=== PATIENT | female | born 1985 | race Caucasian/White ===

== ENCOUNTER 2016-12-04 05:39 | Inpatient (IN) | payer OTHER ==
[2016-12-04] VITALS (14 sets, daily range): BP systolic 106–137; RESP 10–22; TEMP 97.5–98.6; Ht 162.6 cm; Wt 88.5 kg
[~2016-12-04] VITALS: Ht 162.6 cm; Wt 88.5 kg
[2016-12-04] MEDS ORDERED: METOCLOPRAMIDE 10 MG/2 ML VIAL IV PUSH ONE (06:05)
[2016-12-04] MEDS ORDERED: FAMOTIDINE 20 MG INJ IV ONE (06:05)
[2016-12-04] MEDS ORDERED: CEFAZOLIN (LD/OB) 100 ML IV PRN (06:05)
[2016-12-04] MEDS: LACT RINGERS 1,000 ML IV SCH ×2 (06:21→07:11)
[2016-12-04] MEDS ORDERED: DILAUDID 1 MG/ML AMP IV PRN (07:40)
[2016-12-04] MEDS ORDERED: DIPHENHYDRAMINE 50 MG/ML VIAL IV PRN (07:40)
[2016-12-04] MEDS ORDERED: MORPHINE 4 MG/ML SYR IV PRN ×2 (07:40)
[2016-12-04] MEDS ORDERED: SALINE FLUSH 10 ML FLUSH PRN (07:40)
[2016-12-04] MEDS ORDERED: MEPERIDINE 25 MG/ML IV PRN (07:40)
[2016-12-04] MEDS ORDERED: NALOXONE 0.4 MG/ML AMP IV PRN (07:40)
[2016-12-04] MEDS ORDERED: ONDANSETRON 4 MG VIAL IV PRN ×3 (07:40→08:35)
[2016-12-04] MEDS ORDERED: OXYCODONE 5 MG TAB PO PRN (07:40)
[2016-12-04] MEDS ORDERED: MORPHINE 2 MG/ML SYR IV PRN ×2 (07:40)
[2016-12-04] MEDS ORDERED: PROMETHAZINE 25 MG/ML VIAL IV PRN (07:40)
[2016-12-04] MEDS ORDERED: BUTORPHANOL 2 MG/ML VIAL IV PRN (07:40)
[2016-12-04] MEDS ORDERED: TDaP 0.5 ML VIAL IM.VACC ONE (08:35)
[2016-12-04] MEDS ORDERED: LACT RINGERS 1,000 ML IV SCH (08:35)
[2016-12-04] MEDS ORDERED: MEASLES,MUMPS,RUBELLA VAC SUBQ.VACC ONE (08:35)
[2016-12-04] MEDS: KETOROLAC 30 MG/ML VIAL IV SCH ×2 (10:26→17:29)
[2016-12-04] MEDS ORDERED: MORPHINE PF 0.5 MG/ML 10 ML IV ONE (10:46)
[2016-12-04] MEDS ORDERED: ONDANSETRON 4 MG VIAL IV PUSH ONE (10:46)
[2016-12-04] MEDS: SALINE FLUSH 10 ML FLUSH SCH ×2 (10:56→20:00)
[2016-12-04] MEDS: OXYTOCIN 15 UNITS/250 ML NS 250 ML IV SCH ×3 (11:15→21:17)
[2016-12-04] MEDS: METHYLERGONOVINE 0.2 MG TAB PO SCH ×2 (11:35→17:29)
[2016-12-04] MEDS ORDERED: METHYLERGONOVINE 0.2 MG TAB PO SCH (12:00)
[2016-12-05] MEDS: METHYLERGONOVINE 0.2 MG TAB PO SCH ×2 (00:06→05:02)
[2016-12-05] MEDS: KETOROLAC 30 MG/ML VIAL IV SCH ×2 (00:07→05:03)
[2016-12-05 02:00] VITALS: BP_SYST 123; RESP 16; TEMP 98
[2016-12-05] MEDS: OXYTOCIN 15 UNITS/250 ML NS 250 ML IV SCH (02:49)
[2016-12-05 05:53] VITALS: BP_SYST 118; RESP 18; TEMP 97.9
[2016-12-05] MEDS ORDERED: SODIUM CHLORIDE 0.9% FLUSH BAG 500 ML IV SCH (06:00)
[2016-12-05] MEDS: SALINE FLUSH 10 ML FLUSH SCH (08:00)
[2016-12-05 09:29] VITALS: BP_SYST 131; RESP 16; TEMP 98
[2016-12-05] MEDS: Ibuprofen 600 MG TAB PO SCH ×2 (12:16→18:14)
[2016-12-05] MEDS: MAG HYDROX 30 ML UDC PO SCH (13:21)
[2016-12-05 17:33] VITALS: BP_SYST 121
[2016-12-05 17:34] VITALS: RESP 24
[2016-12-05 17:53] VITALS: TEMP 98.5
[2016-12-06] MEDS: Ibuprofen 600 MG TAB PO SCH ×2 (00:05→05:40)
[2016-12-06 05:40] VITALS: BP_SYST 118; RESP 16; TEMP 97.4
[2016-12-06] MEDS: MAG HYDROX 30 ML UDC PO SCH ×2 (08:19)
[2016-12-06 09:36] VITALS: BP_SYST 131
[2016-12-06 09:37] VITALS: RESP 16; TEMP 97.1
[2016-12-06 10:09] VITALS: BP_SYST 126
[2016-12-06 10:14] VITALS: BP_SYST 126; RESP 16; TEMP 97.1
== END 2016-12-06 11:33 | disposition home or self-care (01) | DRG 766 ==
LOC: LD 05:39 → OB 10:47
PROVIDERS: ADMIT Obstetrics & Gynecology Reproductive Endocrinology; ATTEND Obstetrics & Gynecology Reproductive Endocrinology
PROC: 10D00Z1 Extraction of Products of Conception, Low, Open Approach (ICD-10-PCS; principal; 2016-12-04)
PROC: 0UB70ZZ Excision of Bilateral Fallopian Tubes, Open Approach (ICD-10-PCS; 2016-12-04)
PROC: 10907ZC Drainage of Amniotic Fluid, Therapeutic from Products of Conception, Via Natural or Artificial Opening (ICD-10-PCS; 2016-12-04)
DX: O34.211 Maternal care for low transverse scar from previous cesarean delivery (principal); O69.81X0 Labor and delivery complicated by cord around neck, without compression, not applicable or unspecified; Z3A.39 39 weeks gestation of pregnancy; Z37.0 Single live birth; Z30.2 Encounter for sterilization
CPT/HCPCS: 82803; 85025; 86850; 86900; 86901; 88302